=== PATIENT | female | born 1970 | race Caucasian/White ===

== ENCOUNTER 2017-04-17 16:28 | Emergency (ER) | payer OTHER ==
[~2017-04-17] VITALS: Ht 165.1 cm; Wt 84.4 kg
[~2017-04-17 16:28] MED LIST: AMARYL1 MG PO; ASPIRIN EC81 M1 PO; CARAFATE1 G PO; CLEOCIN HCL300 M1 PO; DIFLUCAN PO; EXFORGE 5-320 M1 TAB PO; FLAGYL PO; GLUCOPHAGE XR500 MG PO; GLUCOPHAGE500 MG PO; IBUPROFEN800 MG PO; KEFLEX500 M1 PO; METFORMIN HCL500 M1 PO; METOPROLOL TAR25 MG PO; NEURONTIN PO; NO MEDICATIONS; NORVASC PO; PERCOCET10 PO; SOMA PO; TYLENOL #3 PO; VICODIN 5/500 T1 TAB PO; XANAX2 MG PO
== END 2017-04-17 17:30 | disposition home or self-care (01) ==
LOC: CFTX 16:28 → CED 16:28 → CFTX 17:28
DX: S00.431A Contusion of right ear, initial encounter (principal); I10 Essential (primary) hypertension; E11.9 Type 2 diabetes mellitus without complications; Z79.84 Long term (current) use of oral hypoglycemic drugs; F17.210 Nicotine dependence, cigarettes, uncomplicated; W22.8XXA Striking against or struck by other objects, initial encounter
CPT/HCPCS: 99283